=== PATIENT | female | born 2000 | race Caucasian/White ===

== ENCOUNTER 2022-07-02 13:56 | Outpatient (REF) | payer OTHER, SELFPAY ==
--- NOTE | 2022-07-02 12:50 | PAPFT_PTH ---
PATIENT: Malini Kim LOC: [facility] U#:[id number] AGE/SX: 21/F ROOM: RE07/02/[address]: Penny Ramirez NP : 2000 BED: DIS: 07/02/2022 SPEC #: [id number] RECD: 07/02/22 18:24 STATUS: LULA STANLEY #: [id number] GAYATHRI: 07/02/22 12:[address]: Penny Ramirez NP DEPT: [facility] Cytology RECD BY: Alisa Issa Tissues: 1 - CX/ENDOCX FOR PAP SMEARS Procedures: PAP THIN PREP/[facility] Screening Comments: [id number] (CHLAMYDIA/GC)
[2022-07-03 14:02] LABS: Chlamydia Result Negative (Negative); GC Result Negative (Negative)
== END 2022-07-02 13:57 | disposition home or self-care (01) ==
LOC: LBN 13:56
PROVIDERS: Visit Provider Nurse Practitioner Women's Health
DX: Z12.4 Encounter for screening for malignant neoplasm of cervix (principal); Z11.3 Encounter for screening for infections with a predominantly sexual mode of transmission
CPT/HCPCS: 87491; 87591; 88142